=== PATIENT | male | born 1995 | race Caucasian/White ===

== ENCOUNTER 2023-07-14 15:53 | Emergency (ER) | payer OTHER, SELFPAY ==
[2023-07-14 16:17] VITALS: BP 151/90; PULSE 87; RESP 18; TEMP 36.4; O2SAT 99
--- NOTE | 2023-07-14 16:45 | ED.EAR ---
HPI - Ear Problem General Chief complaint: Ear Stated complaint: ear discomfort Time Seen by Provider: 07/14/23 16:20 Source: patient Mode of arrival: ambulatory Limitations: no limitations History of Present Illness HPI Narrative: aLndon was a 28-year-old male patient presenting to the clinic today with complaints of left ear pain. He reports that he just finished up a 10 day course of antibiotics for his left ear and he is still having some symptoms. Denies any fever or chills. Feels as though liquid is sloshing around in his ear. Related Data Home Medications Medication Instructions Recorded Confirmed citalopram 20 mg tablet 20 mg PO DAILY 07/14/23 07/14/23 Allergies Allergy/AdvReac Type Severity Reaction Status Date / Time No Known Allergies Allergy Verified 07/14/23 16:34 Review of Systems Review of Systems: Pertinent positives per HPI. Patient denies any fever, chills, rash, headache, visual changes, dizziness, cough, runny nose, sore throat, shortness of breath, chest pain, palpitations, nausea, vomiting, diarrhea, constipation, abdominal pain, or any urinary issues. PMFSH Comments At the time of my signature, I reviewed and agree with the nursing past medical, surgical, social, and family history. There is no relevant family history pertinent to the patient complaint. Exam Narrative: General: Well-developed, well nourished, in no apparent distress Head: Normocephalic, atraumatic Eyes: Pupils equally round and reactive to light bilaterally, EOM intact, sclera and conjunctive clear, no discharge, lids normal Ears: TMs intact and clear, right ear canals clear, left ear impacted with cerumen, ear irrigation was performed and some cerumen remains. Left ear canal is very excoriated, no drainage, grossly hearing normal. Nose: Nares patent, no discharge, no inflammation, no sinus tenderness. Mouth: Oropharynx without lesions or masses, good dentition, MMM. Neck: Supple, trachea midline, no enlargement of anterior or posterior cervical nodes, no thyroid masses or goiter palpable. Cardio: Regular rate and rhythm, s1 and s2 normal, no murmur appreciated. Resp: Clear to auscultation bilaterally anteriorly and posteriorly, no rhonchi, rales, wheezing or rubs Course Course Emergency Course: Portions of this record may have been created with voice recognition software. Level of Care: Express Care Visit Vital Signs Vital signs: Vital Signs Temperature 36.4 C L 07/14/23 16:17 Pulse Rate 87 07/14/23 16:17 Respiratory Rate 18 07/14/23 16:17 Blood Pressure 151/90 H 07/14/23 16:17 Pulse Oximetry 99 07/14/23 16:17 Oxygen Delivery Room Air 07/14/23 16:17 Temperature 36.4 C L 07/14/23 16:17 Pulse Rate 87 07/14/23 16:17 Respiratory Rate 18 07/14/23 16:17 Blood Pressure 151/90 H 07/14/23 16:17 Pulse Oximetry 99 07/14/23 16:17 Oxygen Delivery Room Air 07/14/23 16:17 Vital signs reviewed Procedures Ear Wax Removal Left Ear: Ear Wax Removal Date: 07/14/23 Results: Re-examined: some cerumen remains TM Examination: TM(s) intact, normal appearance Ear Canal Exam: other (Excoriated and swollen) Patient Tolerated Procedure: well and no complications Complications: no problems Technique: ear canal irrigated Additional Comments: Verbal consent obtained for ear irrigation. Risk and benefits explained and patient voiced understanding. Ear irrigation performed using an elephant ear and spray water bottle. Mixture of 1/2 peroxide 1/2 water used to irrigate ear canal. Cerumen impaction cleared but some cerumen remained and TM visualized without redness. Grossly hearing normal. Patient tolerated procedure well Medical Decision Making MDM Narrative Medical decision making narrative: At the time of visit patient is resting comfortably on the exam table. Patient appears to be nontoxic. Patient has left cerumen impactio
== END 2023-07-14 16:51 | disposition home or self-care (01) ==
PROVIDERS: Emergency Provider Nurse Practitioner Family; PCP Pediatrics
DX: H60.90 Unspecified otitis externa, unspecified ear (principal); H61.22 Impacted cerumen, left ear
CPT/HCPCS: 69209; 99203; G0463